=== PATIENT | female | born 1955 | race Caucasian/White ===

== ENCOUNTER 2016-07-01 06:50 | Day surgery (SDC) | payer BC ==
[2016-06-27 18:19] VITALS: BMI 33.4
[2016-07-01] MEDS ORDERED: PROPOFOL 20 ML ONE (10:17)
[2016-07-01] MEDS ORDERED: MIDAZOLAM HCL 2 MG/2 ML SINGLE DOSE VIAL ONE (10:18)
[2016-07-01] MEDS ORDERED: SUCCINYLCHOLINE CHLORIDE 200 MG/10 ML VIAL ONE (10:18)
[2016-07-01] MEDS ORDERED: BUPIVACAINE HCL/PF 2.5 MG/ML - 30 ML VIAL IJ ONE (11:30)
[2016-07-01] MEDS ORDERED: LACTATED RINGERS SOLUTION 1,000 ML IV SCH (12:00)
[2016-07-01] MEDS ORDERED: KETOROLAC TROMETHAMINE 30 MG/1 ML VIAL ONE (12:57)
[2016-07-01] MEDS ORDERED: KETOROLAC TROMETHAMINE 30 MG/1 ML VIAL IM ONE (13:05)
[2016-07-01] MEDS ORDERED: HYDROmorphone HCL CARPU-JECT 1 MG/1 ML DISP.SYRIN ONE (13:16)
[2016-07-01] MEDS ORDERED: HYDROmorphone HCL CARPU-JECT 1 MG/1 ML DISP.SYRIN IVPUSH ONE (13:20)
[2016-07-01] MEDS ORDERED: ONDANSETRON 4 MG/2 ML VIAL IVPUSH PRN (13:23)
[2016-07-01] MEDS ORDERED: oxyCODONE HCL 5 MG TABLET PO PRN (13:23)
[2016-07-01 14:28] VITALS: TEMP 98.1
[2016-07-01] MEDS ORDERED: oxyCODONE HCL 5 MG TABLET ONE (14:30)
[2016-07-01 15:08] VITALS: BP 154/84; PULSE 58
--- NOTE | 2016-07-04 00:36 | OP ---
DATE OF OPERATION: 07/01/2016 SURGEON: Nato Marroquin MD [facility]IVING EDUCATOR: ALEK Jefferson PREOPERATIVE DIAGNOSIS: 1. Right knee mediolateral meniscal tear. 2. Right knee cartilage injury. 3. Right knee synovitis. POSTOPERATIVE DIAGNOSIS: 1. Right knee mediolateral meniscal tear. 2. Right knee cartilage injury. 3. Right knee synovitis. PROCEDURE: 1. Right knee arthroscopy with partial meniscectomy of the mediolateral meniscus. 2. Right knee arthroscopy with chondroplasty and abrasioplasty. 3. Right knee arthroscopy with synovectomy major, CPT code 24891, 38652, 40389. FINDINGS: 1. Medial meniscus body and posterior horn tear. 2. Lateral meniscus body tear. 3. Synovitis of patellofemoral and mediolateral tear. 4. Central grade 2-3 chondral change of the medial femoral condyle with antegrade 4 changes to the medial tibial plateau. 5. ACL and PCL are intact. 6. Antegrade 2 chondral change to the tibial plateau. 7. Central grade 2-4 chondral change to the patellofemoral trochlea with 1-2 changes of the patella. PROCEDURE: Informed consent was obtained. The patient was taken to the operating room where the right lower extremity was prepped and draped in a sterile fashion. A tourniquet was placed on the right upper thigh but not inflated. Using standard arthroscopic technique, a lateral incision and portal were made which allowed for introduction of the camera into the suprapatellar bursa. This was then taken to the medial joint line where under direct visualization, a medial incision and portal were made. Excessive synovium noted in the medial, lateral, patellofemoral and notch area was removed by the up-biting shaver and Bovie cautery. This was found to bring inflammatory tissue into the joint surface, a source of joint pain and dysfunction. Probing of the medial and lateral meniscus found tears described in the findings. These were removed with an up-biting shaver and taken back to a stable rim. Grade 2-3 degenerative changes were treated with chondroplasty, removing all flaking surfaces with low setting Bovie used along the periphery. Grade 4 changes were treated with abrasion-plasty. All areas of the knee were once again re-examined. The knee was then drained. A single suture was placed on all portals. Sterile dressing was placed. The patient was transferred to the recovery room. NATO MARROQUIN M.D. [id number]
--- NOTE | 2016-07-04 13:25 | PATH ---
Surgical Pathology Report Patient Name: SARTHAK DORAN [facility]. Rec. #: [id number] /Age/Gender: 1955 (Age: 60) / F Account: [id number] Location: [facility] Taken: 07/01/2016 Received: 07/01/2016 Reported: 07/04/2016 Physicians: Christiano Leigh M.D. Specimen(s) Received RIGHT KNEE SHAVINGS Clinical History Right knee internal derangement Final Diagnosis KNEE, RIGHT, ARTHROSCOPIC SHAVING: FIBROCARTILAGE WITH MYXOID DEGENERATIVE CHANGES, ALONG WITH PORTIONS OF SYNOVIUM. Electronically Signed Urbano Foster M.D. Gross Description Received in formalin, labeled "right knee shavings," is a 3.3 x 2.8 x 0.3 cm. aggregate of samayoa-yellow soft tissue fragments. A home furnishings sales representative portion is submitted in one cassette. /07/01/201607/01/2016
== END 2016-07-01 15:17 | disposition home or self-care (01) ==
LOC: FASU 06:50
PROVIDERS: ATTEND Orthopaedic Surgery
PROC: 0SBC4ZZ Excision of Right Knee Joint, Percutaneous Endoscopic Approach (ICD-10-PCS; 2016-07-01)
PROC: 0SBC4ZZ Excision of Right Knee Joint, Percutaneous Endoscopic Approach (ICD-10-PCS; 2016-07-01)
PROC: 0SBC4ZZ Excision of Right Knee Joint, Percutaneous Endoscopic Approach (ICD-10-PCS; principal; 2016-07-01 11:24)
DX: S83.241A Other tear of medial meniscus, current injury, right knee, initial encounter (principal); S83.281A Other tear of lateral meniscus, current injury, right knee, initial encounter; S83.8X1A Sprain of other specified parts of right knee, initial encounter; M65.861 Other synovitis and tenosynovitis, right lower leg; X58.XXXA Exposure to other specified factors, initial encounter; Y93.9 Activity, unspecified; Y92.9 Unspecified place or not applicable
CPT/HCPCS: 88304-TC; 94760

== ENCOUNTER 2017-10-05 06:01 | Inpatient (IN) | payer BC ==
[2017-10-02 11:44] VITALS: BMI 32.5
[2017-10-05] MEDS ORDERED: CEFAZOLIN 2 GM in DEXTROSE 5%-WATER - 100 ML IVPB ONE (06:41)
[2017-10-05] MEDS ORDERED: oxyCODONE HCL 10 MG SUSTAINED ACTING TABLET PO STA (06:41)
--- NOTE | 2017-10-05 07:14 | HP ---
History & Physical Update - History History: No Change - Physical Physical: No Change - Assessment Assessment: No Change - Plan Plan: No Change (Initial H&P is located in her paper chart. No new complaints or medications. Here today for elective L4/5 TLIF)
[2017-10-05] MEDS ORDERED: LIDOCAINE 1%/EPI 1:100000 (20 ML MULTI DOSE VIAL) ONE (07:22)
[2017-10-05] MEDS ORDERED: THROMBIN (BOVINE) 5,000 UNIT VIAL TP ONE ×2 (07:22→08:57)
[2017-10-05] MEDS ORDERED: MIDAZOLAM HCL 2 MG/2 ML SINGLE DOSE VIAL ONE (07:23)
[2017-10-05] MEDS ORDERED: BUPIVACAINE HCL/PF (5 MG/ML) 30 ML VIAL IJ ONE (07:23)
[2017-10-05] MEDS ORDERED: BUPIVACAINE LIPOSOME/PF (EXPAREL) 266 MG/20 ML VIAL ONE (07:23)
[2017-10-05] MEDS ORDERED: SUCCINYLCHOLINE CHLORIDE 200 MG/10 ML VIAL ONE (08:08)
[2017-10-05] MEDS ORDERED: PROPOFOL 20 ML ONE (08:08)
[2017-10-05] MEDS ORDERED: DEXAMETHASONE SOD PHOSPHATE 4 MG/1 ML VIAL ONE (08:21)
[2017-10-05] MEDS ORDERED: ceFAZolin SODIUM 1 GM VIAL ONE ×2 (08:21→14:12)
[2017-10-05] MEDS ORDERED: ONDANSETRON 4 MG/2 ML VIAL ONE ×2 (08:21→11:29)
--- NOTE | 2017-10-05 10:18 | SURG ---
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 For further detail, please refer to operative report. Visit type - Case Type Case Type: Scheduled - New patient This patient is new to me today: Yes Date on this admission: 10/05/17
--- NOTE | 2017-10-05 10:18 | OP ---
Operative Note - Note: Operative Date: 10/05/17 Pre-Operative Diagnosis: L4/5 spondylolithesis with radiculopathy Operation: Posterior lumbar decompression/fusion/instrumentation, transforaminal interbody fusion L4/5, allograft implant and neuromonitoring Post-Operative Diagnosis: Same as Pre-op Surgeon: Armando Valdivia Charging Crane Operator: Red Marcelo Anesthesiologist/HEADING SAW OPERATOR: Nany Donahue Anesthesia: Spinal Estimated Blood Loss (mls): 25 Fluid Volume Replaced (mls): 700 Operative Report Dictated: Yes
[2017-10-05] MEDS ORDERED: ONDANSETRON 4 MG/2 ML VIAL IVPUSH PRN ×2 (10:21→10:35)
[2017-10-05] MEDS ORDERED: oxyCODONE HCL 5 MG TABLET PO PRN ×2 (10:21→10:35)
[2017-10-05] MEDS ORDERED: LACTATED RINGERS SOLUTION 1,000 ML IV SCH ×2 (10:30→10:45)
--- NOTE | 2017-10-05 11:09 | OP ---
DATE OF OPERATION: 10/05/2017 PREOPERATIVE DIAGNOSES: 1. Spondylolisthesis at L4-L5. 2. Spinal stenosis at L4-L5. POSTOPERATIVE DIAGNOSES: 1. Spondylolisthesis at L4-L5. 2. Spinal stenosis at L4-L5. PROCEDURES PERFORMED: 1. Transforaminal lumbar interbody fusion at L4-L5. 2. Placement of instrumentation at L4-L5. 3. Placement of interbody cage. SURGEON: Armando Valdivia MD PACKING TRACTOR MACHINE OPERATOR: ALEK Calero ESTIMATED BLOOD LOSS: 50 mL. INTRAVENOUS FLUIDS: Per Anesthesia. ANESTHESIA: Spinal/TLIP. COMPLICATIONS: None. CONDITION: The patient was brought to the PACU in stable condition. INDICATIONS FOR SURGERY: The patient is 61-year-old female who has been suffering from pain from her back down her legs. X-rays and MRI were completed, which showed that she had spondylolisthesis at L4-L5 and spinal stenosis at that level. She had gone through an exhaustive course of treatment, which included medications, physical therapy as well as injections. Unfortunately, the pain continued to persist in spite of all this. At this point, the risks, benefits and alternatives were discussed , and the patient consented to surgery. DESCRIPTION OF PROCEDURE: The patient was brought to the operating room by the anesthesia staff. After appropriate patient identification was performed, spinal anesthesia was given. A TLIP block was able. The patient was able to position herself prone onto the OR table, with all bony prominences well-padded at this time. The C-arm was brought in. The L4 and L5 pedicles were marked out. Lidocaine with epinephrine 10 mL was injected into her back at this time. Her back was prepped and draped in the usual sterile manner. At this point a time-out was completed. Incisions were made bilaterally over the L4 and L5 pedicles. Dissection was carried down to the fascia. The fascia was split open at this time. The C-arm was brought in. Trocars were advanced to both the L4 and L5 pedicles. Through the trocars, wires were inserted. Over the wires tap was performed and screws inserted. On the right-hand side, retractor blades were set up to expose the L4-L5 facet joint. This was confirmed with x-ray. This facet joint was removed with an osteotome and yuri. The disk was entered using a series of pituitaries, Kerrisons and curettes. A diskectomy was completed. The endplates were decorticated at this time. Bone graft was placed down. A cage filled with bone graft was placed in. Tulip heads were placed over the screws. A santy was measured and placed on. Caps and compression were applied. On the left-hand side, a santy was measured and placed in. Caps and compression were applied. All extra instrumentation was removed at this time. AP and lateral x-rays confirmed the instrumentation to be in good position. The fascia was closed with a number 1 Vicryl suture. The subcutaneous tissues were closed with 2-0 Vicryl suture. The skin was closed with 3-0 Monocryl suture. Dermabond was applied. Steri-Strips were applied. A sterile dressing was applied. The patient was placed supine on the OR bed, extubated in the OR and brought to the PACU in stable condition. Floyd [id number] MTDD
[2017-10-05] MEDS ORDERED: diazePAM 2 MG TABLET ONE (12:08)
[2017-10-05] MEDS ORDERED: oxyCODONE HCL 5 MG TABLET ONE (12:54)
[2017-10-05] MEDS ORDERED: CEFAZOLIN 2 GM in DEXTROSE 5%-WATER - 50 ML IVPB ONE (14:38)
[2017-10-05 14:47] VITALS: BP 140/61; PULSE 70; TEMP 98.4
[2017-10-05] MEDS ORDERED: metFORMIN HCL 500 MG TABLET (FP) PO SCH (22:00)
[2017-10-05] MEDS ORDERED: RANITIDINE HCL 150 MG TABLET (FP) PO SCH (22:00)
[2017-10-05] MEDS ORDERED: diazePAM 2 MG TABLET PO SCH (22:00)
[2017-10-05] MEDS ORDERED: GLIMEPIRIDE 4 MG TABLET (FP) PO SCH (22:00)
[2017-10-05] MEDS ORDERED: ATORVASTATIN CA 20 MG TABLET (FP) PO SCH (22:00)
[2017-10-06] MEDS ORDERED: PATIENT'S OWN MEDICATION (NON-FORMULARY) (Magnesium Oxide [Magnesium] 500 MG) PO SCH (10:00)
[2017-10-06] MEDS ORDERED: LISINOPRIL 20 MG TABLET (FP) PO SCH (10:00)
== END 2017-10-05 14:55 | disposition home or self-care (01) | DRG 460 ==
LOC: FM/S 06:01
PROVIDERS: ADMIT Orthopaedic Surgery Orthopaedic Surgery of the Spine; ATTEND Orthopaedic Surgery Orthopaedic Surgery of the Spine
PROC: 0SG00K1 Fusion of Lumbar Vertebral Joint with Nonautologous Tissue Substitute, Posterior Approach, Posterior Column, Open Approach (ICD-10-PCS; principal; 2017-10-05 08:47)
DX: M48.061 Spinal stenosis, lumbar region without neurogenic claudication (principal); M43.16 Spondylolisthesis, lumbar region
CPT/HCPCS: 36415; 72100-TC-FY; 82962; 86803; 87389; 94760

== ENCOUNTER 2020-02-06 06:11 | Day surgery (SDC) | payer BC ==
[2020-02-05 13:51] VITALS: BMI 33.6
[2020-02-06] MEDS ORDERED: ROPIVACAINE HCL 0.5% 30ML VIAL ONE (06:56)
[2020-02-06] MEDS ORDERED: MIDAZOLAM HCL 2 MG/2 ML SINGLE DOSE VIAL ONE (06:56)
[2020-02-06] MEDS ORDERED: DEXAMETHASONE SOD PHOSPHATE 4 MG/1 ML VIAL ONE (07:03)
[2020-02-06] MEDS ORDERED: PROPOFOL 20 ML ONE (07:03)
[2020-02-06] MEDS ORDERED: LIDOCAINE HCL/PF 2% SDV 5ML VIAL ONE (07:03)
[2020-02-06] MEDS ORDERED: ONDANSETRON 4 MG/2 ML VIAL ONE (07:03)
[2020-02-06] MEDS ORDERED: KETOROLAC TROMETHAMINE 30 MG/1 ML VIAL ONE (07:03)
[2020-02-06] MEDS ORDERED: SUCCINYLCHOLINE CHLORIDE 200 MG/10 ML SYRINGE ONE (07:04)
[2020-02-06] MEDS ORDERED: ONDANSETRON 4 MG/2 ML VIAL IVPUSH PRN (07:26)
[2020-02-06] MEDS ORDERED: oxyCODONE HCL 5 MG TABLET PO PRN ×2 (07:26)
[2020-02-06] MEDS ORDERED: LACTATED RINGERS SOLUTION 1,000 ML IV SCH (07:30)
[2020-02-06] MEDS ORDERED: ceFAZolin SODIUM 1 GM VIAL ONE (08:14)
[2020-02-06] MEDS ORDERED: EPHEDRINE SULFATE/0.9% NACL/PF 50 MG/10 ML SYRINGE NR ONE (08:34)
[2020-02-06] MEDS ORDERED: oxyCODONE HCL 5 MG TABLET ONE (10:24)
[2020-02-06 11:09] VITALS: TEMP 98.4
[2020-02-06 11:44] VITALS: BP 146/84; PULSE 70
== END 2020-02-06 12:02 | disposition home or self-care (01) ==
LOC: FASU 06:11
PROVIDERS: ATTEND Orthopaedic Surgery
PROC: 0LQ10ZZ Repair Right Shoulder Tendon, Open Approach (ICD-10-PCS; 2020-02-06)
PROC: 0RNJ4ZZ Release Right Shoulder Joint, Percutaneous Endoscopic Approach (ICD-10-PCS; principal; 2020-02-06 08:21)
DX: M75.101 Unspecified rotator cuff tear or rupture of right shoulder, not specified as traumatic (principal); M75.41 Impingement syndrome of right shoulder; E11.9 Type 2 diabetes mellitus without complications; Z79.84 Long term (current) use of oral hypoglycemic drugs
CPT/HCPCS: 82962; 88304-TC; 94760